=== PATIENT | female | born 1995 | race Caucasian/White ===

== ENCOUNTER 2022-06-21 20:34 | Inpatient (IN) ==
[2022-06-21 23:59] LABS: Bilirubin,Urine Negative (Negative); Blood,Urine Large (Negative); Clarity,Urine Clear (Clear); Color,Urine Yellow (Yellow); Glucose,Urine (UA) Normal (Normal); Ketones,Urine Negative (Negative); Leukocyte Esterase,Urine Negative (Negative); Mucus,Urine Few per lpf (None-Few); Nitrite,Urine Negative (Negative); Protein,Urine 30 mg/dL (Neg-Trace); Specific Gravity,Urine > 1.030 (1.010-1.025); Squamous Epithelial Cell,Urine Moderate per hpf (None-Few); WBC,Urine 0-3 per hpf (0-3)
[2022-06-22 00:03] LABS: Basophils % 0.7 %; Eosinophils # 0.1 K/mcL (0.0-0.6); Eosinophils % 1.5 %; Hematocrit 37.4 % (35.3-44.9); Hemoglobin 12.3 g/dL (11.5-15.4); Immature Granulocytes % 0.2 % (0-4); Lymphocytes # 2.2 K/mcL (0.6-4.6); Lymphocytes % 37.8 %; Mean Corpuscular HGB Conc 32.9 g/dL (31.6-35.5); Mean Corpuscular Hemoglobin 28.6 pg (28.0-33.3); Mean Platelet Volume 12.8 fL (9.4-12.4); Monocytes # 0.4 K/mcL (0.0-1.3); Monocytes % 6.9 %; Neutrophils # 3.1 K/mcL (1.6-8.9); Platelet Count 159 K/mcL (140-400); Red Cell Distribution Width 12.8 % (11.5-14.5); Segmented Neutrophils % 52.9 %; White Blood Count 5.9 K/mcL (4.3-11.1)
[2022-06-22 00:09] LABS: Amphetamine Screen,Urine Negative ng/mL (Cutoff=1000); Barbiturate Screen,Urine Negative ng/mL (Cutoff=200); Benzodiazepines Screen,Urine Negative ng/mL (Cutoff=200); Cannabinoid Screen,Urine Negative ng/mL (Cutoff = 50); Cocaine Screen,Urine Negative ng/mL (Cutoff= 300); Opiate Screen,Urine Negative ng/mL (Cutoff=300); Phencyclidine Screen,Urine Negative ng/mL (Cutoff=25)
[2022-06-22 00:13] LABS: Acetaminophen < 10 mcg/mL (10-20); Alanine Aminotransferase 9 Units/L (7-52); Albumin 4.1 g/dL (3.5-5.7); Albumin/Globulin Ratio 1.6 (1.1-2.2); Alkaline Phosphatase 49 Units/L (34-104); Aspartate Amino Transferase 11 Units/L (13-39); BUN/Creatinine Ratio 16 (6-26); Bilirubin,Direct 0.1 mg/dL (0.0-0.2); Bilirubin,Indirect 0.3 mg/dL (0.0-1.0); Bilirubin,Total 0.4 mg/dL (0.3-1.0); Blood Urea Nitrogen 12 mg/dL (6-20); Carbon Dioxide 23 mEq/L (23-29); Chloride 107 mEq/L (98-107); Chol/HDL Ratio 3.4 (0-4.9); Cholesterol 134 mg/dL (< 200); Ethanol < 10 mg/dL (Less than 10); Globulin 2.6 g/dL (2.4-3.5); Glucose 94 mg/dL (70-105); HDL Cholesterol 40 mg/dL (40-59); LDL Cholesterol,Calculated 84 mg/dL (< 100); Osmolality,Calculated 284 (280-300); Salicylate < 2.5 mg/dL (15.0-30.0); Sodium 137 mEq/L (136-145); Total Protein 6.7 g/dL (6.4-8.9); Triglycerides 49 mg/dL (< 150)
[2022-06-22 00:24] LABS: Estimated Average Glucose 105 mg/dl; Hemoglobin A1C 5.3 %
[2022-06-22 03:04] LABS: Influenza A PCR Negative (Negative); Influenza B PCR Negative (Negative); Resp. Syncytial Virus PCR Negative (Negative)
[2022-06-22 03:08] LABS: SARS-CoV-2 by PCR (In House) Negative (Negative)
[2022-06-22] MEDS ORDERED: *HR* LORazepam 2 MG/ML VIAL IM PRN (03:20)
[2022-06-22] MEDS ORDERED: Acetaminophen 325 MG TABLET PO PRN (03:20)
[2022-06-22] MEDS ORDERED: haloperidoL 5 MG TABLET PO PRN (03:20)
[2022-06-22] MEDS ORDERED: traZODone 50 MG TABLET PO PRN (03:20)
[2022-06-22] MEDS ORDERED: Haloperidol Lactate 5 MG/ML VIAL IM PRN (03:20)
[2022-06-22] MEDS ORDERED: hydrOXYzine pamoate 25 MG CAPSULE PO PRN (03:20)
[2022-06-22] MEDS ORDERED: *HR* LORazepam 1 MG TABLET PO PRN (03:20)
[2022-06-22] MEDS: Neosporin OINT 15 GM TUBE TP SCH (21:38)
[2022-06-23] MEDS: Neosporin OINT 15 GM TUBE TP SCH ×2 (08:30→21:14)
[2022-06-23 09:48] LABS: Thyroid Stimulating Hormone 1.305 mcIU/mL (0.340-5.600)
[2022-06-23 20:26] VITALS: O2SAT 98
[2022-06-24] MEDS: Neosporin OINT 15 GM TUBE TP SCH (09:19)
[2022-06-24 09:44] VITALS: BP 129/85; PULSE 98; TEMP 97.4
== END 2022-06-24 14:00 | disposition home or self-care (01) | DRG 751 ==
LOC: EMEROOARM 20:34 → 1ANU 06-22 03:14
PROVIDERS: ADMIT Psychiatry & Neurology Forensic Psychiatry; ATTEND Psychiatry & Neurology Forensic Psychiatry